=== PATIENT | male | born 1985 | race Caucasian/White ===

== ENCOUNTER 2017-08-24 19:59 | Emergency (ER) | payer BC, OTHER ==
[~2017-08-24] VITALS: Ht 177.8 cm; Wt 64.2 kg
[~2017-08-24 19:59] MED LIST: ALBUAER19 INH
[2017-08-24 20:02] VITALS: BP 115/59; PULSE 99; TEMP 36.8; O2SAT 97; Ht 177.8 cm; Wt 64.2 kg
[2017-08-24] MEDS ORDERED: PROPARACAINE HCL 0.5% OP SOLN 15 ML BTL OP STA (20:17)
[2017-08-24] MEDS ORDERED: PROPARACAINE HCL 0.5% OP SOLN 15 ML BTL ONE (20:18)
[2017-08-24] MEDS ORDERED: NORCO 5/325MG HOME PACK PO ONE (20:45)
[2017-08-24] MEDS ORDERED: HYDR-5688 PO (20:45)
[2017-08-24] MEDS ORDERED: CIPROFLOXACIN HCL 0.3% OP SOLN 2.5 ML BTL OP ONE (20:45)
--- NOTE | 2017-08-24 20:46 | EMERGENCY ROOM VISIT NOTE ---
History First contact with patient: 20:06 Chief Complaint: EYE ASSESSMENT Stated Complaint: SOMETHING IN RIGHT EYE History of Present Illness The patient is a 32 year old male who presents to the Emergency Room with complaints of pain in his right eye that he noticed when he woke up this morning. The patient says that it feels like there's something in the eye. He does not report any known injury. He does not wear contact lenses. Denies any changes in vision. No sensitivity to light. No fever or chills. Clear tearing from the eye. No purulent drainage noted. No matting. Review of Systems 6 system review negative. Please see pertinent positives in the history of present illness section. Past Medical/Surgical History Otherwise healthy Social History Smoking Status: Current Every Day Smoker Housing Status: lives alone Occupation Status: employed Current/Historical Medications Scheduled PRN Hydrocodone/Acetaminophen 5MG/325MG ([place] 5MG/325MG), 1-2 TABLET PO Q4H PRN for Pain Physical Exam Vital Signs Date Time Temp Pulse Resp B/P (MAP) Pulse Ox O2 Delivery O2 Flow Rate FiO2 08/24/17 20:02 36.8 99 18 115/59 97 Room Air Physical Exam VITALS: Vitals are noted on the nurse's note and reviewed by myself. Vital signs stable. GENERAL: 32-year-old male, in no acute distress, nondiaphoretic, well-developed well-nourished. HEAD: Normocephalic atraumatic. EYES: Pupils equal round and reactive to light and accommodation. Right conjunctiva mildly injected. Clear tearing from the eye. Extraocular muscles intact without pain. Insert Slit Lamp Exam Slit Lamp Examination was performed of the right eye(s). Alcaine drops were applied to the affected eye(s) for proper anesthetization. The affected eye(s) were stained with Fluorescein stain to precipitate adequate visualization of any conjunctival/scleral excoriations or ulcers. The patients face was comfortably rested on the chin guard of the slit lamp apparatus. The lights were dimmed and the affected eye(s) were thoroughly examined under microscopy using the blue light. uptake was present At approximately 12:00 and system with a superficial abrasion.. Additionally, the eye(s) were examined under microscopy using the regular light. Close examination revealed no other abnormalities. The lid was everted. A small stye approximately 1 mm in diameter was noted.. Patient tolerated the procedure well and no complications were met. NEURO: Patient was alert and oriented to person place and time. Normal sensation to touch. No focal neurological deficits. Medical Decision & Procedures Medications Administered Medications (Trade) Dose Ordered Sig/[place] Route Start Time Stop Time Status Last Admin Dose Admin Ciprofloxacin HCl (Ciprofloxacin 0.3% Op Soln) 2 drops NOW ONCE OP 08/24/17 20:45 08/24/17 20:46 DC 08/24/17 20:45 2 DROPS Acetaminophen/ Hydrocodone Bitart ([place] 5/325mg Home Pack) 1 homepack UD ONCE PO 08/24/17 20:45 08/24/17 20:46 DC 08/24/17 20:45 1 HOMEPACK ED Course The patient was seen and examined He was given 1 dose of Ciloxan drops. He was also given a home pack of [place]. Discharge instructions were reviewed, and he was discharged in good condition Medical Decision Differential diagnosis: Foreign body, corneal abrasion, ulceration, stye, This patient is a 32-year-old male that presents to the emergency department with right eye discomfort that he woke up with this morning. On exam, his eye was injected and tearing. When I everted the lid, it revealed a small stye. A slit lamp exam was performed, and revealed a small corneal abrasion. The patient will be treated with Ciloxan drops for the corneal abrasion. He was instructed to do warm compresses for the stye. He was given a short course of narcotics for pain. He was advised to follow-up with ophthalmology if his symptoms did not improve in the next several days. He was instructed to return to the emergency department with any new or worsening symptoms. The patient was comfortable with this plan, and discharged in good condition This chart was completed in part utilizing [employer] Voice Recognition software. Attempts were made to minimize the grammatical errors, random word insertions, pronoun errors and incomplete sentences. Any formal questions or concerns about the content, text or information contained within the body of this dictation should be directly addressed to the provider for clarification. Impression Primary Impression: Corneal abrasion Additional Impression: Stye Departure Information Dispostion Home / Self-Care Condition GOOD Prescriptions Hydrocodone/Acetaminophen 5MG/325MG ([place] 5MG/325MG) Tab 1-2 TABLET PO Q4H Y for Pain, #10 TAB For Initial Treatment Prov: Jenny Elizondo PA-C 08/24/17 Referrals No Doctor, Assigned (PCP) Patient Instructions My [facility] Additional Instructions You were evaluated in the emergency department with discomfort in the right eye. This is due to a stye. You also have a small abrasion on the cornea. Please do Ciloxan drops: 1 drop every 4 hours for 2 days. Then instill 1 drop every 6 hours for an additional 3 days. Ibuprofen 800 mg every 8 hours [place] 1-2 tabs every 4 hours for severe pain. Do not drink alcohol or drive while taking this medication. This may be taken with ibuprofen, but avoid Tylenol. It is important to apply warm compresses for 15 minutes on and 50 minutes off every 4 hours for the next several days. If your symptoms are not improving, please follow-up with an leaf tier. A number has been provided. Do not hesitate to return to the emergency department with any new, worsening or concerning symptoms; especially, problems with vision, severe pain, redness or fever Problem Qualifiers
== END 2017-08-24 21:00 | disposition home or self-care (01) ==
LOC: C.EDB 20:00 → C.EDD 21:00
DX: S05.01XA Injury of conjunctiva and corneal abrasion without foreign body, right eye, initial encounter (principal); X58.XXXA Exposure to other specified factors, initial encounter; Y92.9 Unspecified place or not applicable; H00.013 Hordeolum externum right eye, unspecified eyelid; F17.210 Nicotine dependence, cigarettes, uncomplicated

== ENCOUNTER 2017-11-05 19:30 | Emergency (ER) | payer OTHER ==
[~2017-11-05] VITALS: Ht 177.8 cm; Wt 63.7 kg
[~2017-11-05 19:30] MED LIST changes: -ALBUAER19 INH; +HYDR-5688 PO
[2017-11-05 19:42] VITALS: TEMP 37.1; Ht 177.8 cm; Wt 63.7 kg
[2017-11-05] MEDS ORDERED: KETOROLAC TROMETHAMINE 60 MG/2 ML VIAL IM STA (21:16)
[2017-11-05] MEDS ORDERED: IBUP-1428 PO (22:15)
--- NOTE | 2017-11-05 22:17 | DIAGNOSTIC IMAGING REPORT ---
LUMBAR SPINE 3 VIEWS CLINICAL HISTORY: Low back pain. FINDINGS: AP, lateral, and coned-down views of the lumbar spine are obtained. No prior studies are available for comparison at the time of dictation. The skeletal structures are well mineralized. There is no radiographic evidence of fracture or malalignment. Vertebral body height and alignment are maintained. The transverse and spinous processes are intact. The intervertebral disc spaces are well-maintained. The visualized bony pelvis appears intact. There is a nonobstructed abdominal bowel gas pattern. Moderate constipation is observed. IMPRESSION: Unremarkable radiographic evaluation of the lumbosacral spine. Electronically signed by: Hollis Palomo M.D. 11/05/2017 10:16 PM Dictated Date/Time: 11/05/2017 10:15 PM
--- NOTE | 2017-11-05 22:18 | DIAGNOSTIC IMAGING REPORT ---
TWO VIEW CHEST CLINICAL HISTORY: Cough. FINDINGS: PA and lateral chest radiographs are compared to study dated 03/04/2016. The cardiomediastinal silhouette is unremarkable. The lungs and pleural spaces are clear. There is no pneumothorax. The bony thorax appears intact. IMPRESSION: No active disease in the chest. Electronically signed by: Hollis Palomo M.D. 11/05/2017 10:17 PM Dictated Date/Time: 11/05/2017 10:16 PM
[2017-11-05] MEDS ORDERED: MoRPHine SULFATE 10 MG/ML CARP/VIAL IM STA (23:01)
[2017-11-05] MEDS ORDERED: AZITHROMYCIN 250 MG TAB PO STA (23:01)
[2017-11-05] MEDS ORDERED: AZIT-57 PO (23:05)
[2017-11-05] MEDS ORDERED: PRED20TA PO (23:05)
[2017-11-05 23:20] VITALS: BP 123/74; PULSE 79; O2SAT 98
--- NOTE | 2017-11-06 01:17 | EMERGENCY ROOM VISIT NOTE ---
History Report prepared by Shanique: Edward Garcia Under the Supervision of: Dr. Scotty Kennedy D.O. First contact with patient: 21:03 Chief Complaint: ILLNESS Stated Complaint: COUGHING,CLOGGED NOSE,LOWER BACK PAIN History of Present Illness The patient is a 32 year old male who presents to the Emergency Room with complaints of a persistent illness starting two days ago. The patient states that he has a runny nose then a congested nose, and he has been coughing up yellow and brown mucous. The patient additionally is complaining of back pain for the past 2-3 weeks, and he states that the pain is better with standing, and he states that the pain does not go down into the leg. He states that his son has recently had similar symptoms. The patient denies any fever, sore throat , headache, neck pain, chest pain, shortness of breath, abdominal pain, weakness or numbness in the arms or legs, and any trouble with bowel movements an urination. The patient has no history of asthma, COPD, previous back surgeries, recent trauma, history of cancer, and history of IV drug use. Source of History: patient Onset: two days ago Position: other (global) Quality: other (illness) Timing: other (persistent) Associated Symptoms: + cough, + back pain, No fevers, No sorethroat Note: Associated symptoms: Runny nose Review of Systems See HPI for pertinent positives & negatives. A total of 10 systems reviewed and were otherwise negative. Past Medical & Surgical Surgical Problems: (1) S/P wrist surgery Family History Patient reports no known family medical history. Social History Smoking Status: Current Every Day Smoker Housing Status: lives alone Occupation Status: employed Current/Historical Medications Scheduled Azithromycin (Azithromycin), 250 MG PO DAILY Ibuprofen (Motrin), 800 MG PO PRN UD Prednisone (Prednisone), 1 TAB PO DAILY Allergies Coded Allergies: No Known Allergies (Unverified , 03/04/16) Physical Exam Vital Signs Date Time Temp Pulse Resp B/P (MAP) Pulse Ox O2 Delivery O2 Flow Rate FiO2 11/05/17 23:20 79 16 123/74 98 11/05/17 19:42 37.1 102 22 117/72 96 Room Air Physical Exam GENERAL: Sitting on the edge of the bed with a dry cough. No acute distress. Non toxic. Talking in full sentences. EYE EXAM: normal conjunctiva. OROPHARYNX: no exudate, no erythema, lips, buccal mucosa, and tongue normal and mucous membranes are moist NECK: supple, no nuchal rigidity, no adenopathy, non-tender LUNGS: Clear to auscultation. Normal chest wall mechanics HEART: no murmurs, S1 normal and S2 normal ABDOMEN: abdomen soft, normo-active bowel sounds, no masses, no rebound or guarding. BACK: Slight reproducible pain over the left SI joint tracking into the left mid gluteus. SKIN: no rashes and no bruising UPPER EXTREMITIES: upper extremities are grossly normal. LOWER EXTREMITIES: Flexion and extension of the hip, knee, ankle, and EHL are 5/ 5 bilaterally. Gross sensation intact. Able to ambulate without difficulty. Patellar and Achilles reflexes are 2/4 bilaterally. NEURO EXAM: Normal sensorium, cranial nerves II-XII grossly intact, normal speech, no gross weakness of arms. Medical Decision & Procedures ER Provider Diagnostic Interpretation: Radiology results as stated below per my review and the radiologist's interpretation: LUMBAR SPINE 3 VIEWS CLINICAL HISTORY: Low back pain. FINDINGS: AP, lateral, and coned-down views of the lumbar spine are obtained. No prior studies are available for comparison at the time of dictation. The skeletal structures are well mineralized. There is no radiographic evidence of fracture or malalignment. Vertebral body height and alignment are maintained. The transverse and spinous processes are intact. The intervertebral disc spaces are well-maintained. The visualized bony pelvis appears intact. There is a nonobstructed abdominal bowel gas pattern. Moderate constipation is observed. IMPRESSION: Unremarkable radiographic evaluation of the lumbosacral spine. Electronically signed by: Hollis Palomo M.D. 11/05/2017 10:16 PM Dictated Date/Time: 11/05/2017 10:15 PM TWO VIEW CHEST CLINICAL HISTORY: Cough. FINDINGS: PA and lateral chest radiographs are compared to study dated 03/04/2016. The cardiomediastinal silhouette is unremarkable. The lungs and pleural spaces are clear. There is no pneumothorax. The bony thorax appears intact. IMPRESSION: No active disease in the chest. Electronically signed by: Hollis Palomo M.D. 11/05/2017 10:17 PM Dictated Date/Time: 11/05/2017 10:16 PM Medications Administered Medications (Trade) Dose Ordered Sig/[place] Route Start Time Stop Time Status Last Admin Dose Admin Ketorolac Tromethamine (Toradol Inj) 60 mg NOW STAT IM 11/05/17 21:16 11/05/17 21:18 DC 11/05/17 22:02 60 MG Prednisone (PredniSONE TAB) 40 mg NOW STAT PO 11/05/17 21:16 11/05/17 21:18 DC 11/05/17 22:02 40 MG Azithromycin (Zithromax Tab) 500 mg NOW STAT PO 11/05/17 23:01 11/05/17 23:03 DC 11/05/17 23:17 500 MG Morphine Sulfate (MoRPHine SULFATE INJ) 4 mg NOW STAT IM 11/05/17 23:01 11/05/17 23:03 DC 11/05/17 23:17 4 MG ED Course ED COURSE: Vital signs were reviewed and showed tachycardia The patients medical record was reviewed The above diagnostic studies were performed and reviewed. ED treatments and interventions as stated above. 2102: The patient was evaluated in room C9. A complete history and physical examination was performed. 2115: Prednisone 40mg PO, Toradol 60mg IM 2300: Upon reevaluation, the patient is feeling better. He is still have a little bit of pain. I ordered Morphine Sulfate 4mg IM and Azithromycin. I discussed my findings with the patient and he understands and agrees with the treatment plan. Based on the patients age, coexisting illnesses, exam and lab findings the decision to treat as an outpatient was made. The patient remained stable while under my care. The patient appeared well at the time of discharge. Medical Decision Differential diagnoses includes but is not limited to lumbar radiculopathy, muscle strain, facture, cauda equina, mass, disc herniation, pneumonia, bronchitis, COPD/Asthma exacerbation, pneumothorax, pulmonary embolism, congestive heart failure, acute coronary syndrome Patient is a 32-year-old male that presents the ER for a runny nose, cough with yellow productive sputum for the past 2 days. Patient also complains of lower back pain which is on the left lower side which is been present for the past 2- 3 weeks. He notes it slightly worse with standing. He is completely neurologically intact. X-rays of the lumbar spine and chest x-ray are unremarkable. I do favor this is likely viral in nature however with his symptoms I did treat him for bronchitis with azithromycin. He was given IM Toradol and steroids. He did feel slightly better. Just prior to discharge he was given IM morphine. There is nothing to suggest cauda equina. Patient was updated at bedside discharge follow-up PCP with bronchitis and lower back pain. Discussed with Pt concerning signs and symptoms to watch out for. Pt was instructed to follow up with their PCP and discussed with the patient their option to return to the ED at anytime for persistent or worsening symptoms. The appropriate anticipatory guidance and out-patient management, including indications for return to the emergency department, were explained at length to the patient and understood. Medication Reconcilliation Current Medication List: was personally reviewed by me Blood Pressure Screening Patient's blood pressure: Normal blood pressure Impression Primary Impression: Bronchitis Additional Impression: Back pain Scribe Attestation The scribe's documentation has been prepared under my direction and personally reviewed by me in its entirety. I confirm that the note above accurately reflects all work, treatment, procedures, and medical decision making performed by me. Departure Information Dispostion Home / Self-Care Prescriptions Prednisone (Prednisone) 20 Mg Tab 1 TAB PO DAILY for 3 Days, #3 TAB Prov: Scotty Kennedy, DO 11/05/17 Azithromycin (Azithromycin) 250 Mg Tab 250 MG PO DAILY for 4 Days Prov: Scotty Kennedy, DO 11/05/17 Referrals No Doctor, Assigned (PCP) Forms HOME CARE DOCUMENTATION FORM, IMPORTANT VISIT INFORMATION, WORK / SCHOOL INSTRUCTIONS Patient Instructions Back Pain - [facility], Bronchitis Acute, My [facility] Additional Instructions Please follow up with your primary care doctor with in the next 24 hours. Any worsening of your symptoms, please return to the ED immediately. This includes any fevers greater than 100.4, worsening pain, chest pain, shortness breath, persistent nausea, vomiting, unable to eat or drink, or any other concerning signs or symptoms from your standpoint. You were given medications during this visit that will inhibit your ability to drive, operate machinery and work. Please do NOT drive, operate machinery, drink alcohol or work for the next 12hrs. Please take antibiotics as prescribed. Please take Tylenol or Motrin as needed for pain. Problem Qualifiers Additional Impression: Back pain Back pain location: back pain in unspecified location Chronicity: acute Back pain laterality: unspecified Qualified Codes: M54.9 - Dorsalgia, unspecified
== END 2017-11-05 23:20 | disposition home or self-care (01) ==
LOC: C.EDB 19:32 → C.EDC 23:20
DX: J40 Bronchitis, not specified as acute or chronic (principal); R05 Cough; M54.9 Dorsalgia, unspecified; F17.200 Nicotine dependence, unspecified, uncomplicated; Z79.899 Other long term (current) drug therapy